=== PATIENT | male | born 1935 | race Caucasian/White ===

== ENCOUNTER 2017-05-11 09:10 | Emergency (ER) | payer MEDICARE ==
[~2017-05-11] VITALS: Ht 180.3 cm; Wt 116.8 kg
[2017-05-11 09:17] VITALS: BP 149/69; PULSE 71; RESP 16; O2SAT 96
--- NOTE | 2017-05-11 09:24 | ED.REPORT ---
HPI-General Illness Date of Service May 11, 2017 ED Provider: Linwood Khan DO The patient is an 81 year old male with history of atrial fibrillation, prostate cancer, and borderline diabetes, who was sent to the emergency department from urgent care for bradycardia. His heart rate went down to the 30' s while at urgent care. He did not have symptoms when his heart rate was this low. The patient went to urgent care this morning for a cough with yellow sputum that has been ongoing for the last week. His cough has worsened since onset. He has noticed some shortness of breath. He denies fever, chills, chest pain or vomiting. He has chronic lower extremity swelling. He got back from [place] 1 week ago. He takes aspirin daily but no other medications. Nursing Notes Stated Complaint: HEART RATE DECREASE Chief Complaint: Dysrhythmia/Cardiac Nursing Notes Reviewed: Yes Allergies: Coded Allergies: shellfish derived (Verified Allergy, Severe, Hives, 05/11/17) Scheduled Amoxicillin/Clav K 875-125 mg (Augmentin 875-125 mg) 1 Each Tablet 1 TABLET PO BID Azithromycin (Zithromax (Z-[place])) 250 Mg Tablet 250 MG PO DIRECTED Take two tablets by mouth on day 1, then take one tablet daily on days 2 through 5. General Time Seen by MD: 09:22 Chief Complaint Other (bradycardia) Hx Obtained From: Patient, Spouse Arrived By: Walk-in Sudden in Onset?: No Onset Occurred: 1 week ago Symptom Duration: Since onset Location: No: Chest Severity: Current: No pain currently Severity: Maximum: No pain Recent Healthcare: No recent hospitalization, Recent doctor visit Similar Sx Previous: No Past Medical History Past Medical History Borderline diabetic Prostate cancer Atrial fibrillation Past Surgical History TURP Gallbladder surgery Family History Noncontributory Smoking History Never Smoker Social History Alcohol Use: "Social" Other Social History: Good social support, , Local resident Ambulatory Status Independent Review of Systems Full Review of Systems Constitutional: Denies: Chills, Fever Respiratory: Reports: Prod cough, yellow, Shortness of breath Cardiovascular: Denies: Chest pain GI: Denies: Nausea, Vomiting Musculoskeletal: Reports: Extremity swelling (chronic) Complete sys rev & neg: except as marked. Physical Exam Vital Signs Vital Signs Date Time Temp Pulse Resp B/P Pulse Ox O2 Delivery O2 Flow Rate FiO2 05/11/17 12:50 70 23 133/46 95 Room Air 05/11/17 11:42 77 20 130/40 95 Room Air 05/11/17 09:17 36.4 71 16 149/69 96 Room Air Initial VS: Reviewed Head / Eyes: Atraumatic, Normocephalic, PERRL ENT: Mucous membranes moist, Conjunctiva normal, No scleral icterus Neck: Supple, Non-tender, Full range of motion Abdomen / GI: Soft, Non-tender, No guarding, No rebound, No distention Lymphatic: No lymphadenopathy Extremities: Vascular intact, Neuro intact, No tenderness Skin: Warm, Dry, No cyanosis Neurologic: Alert, Oriented, Nonfocal Psychiatric: Mood/affect normal, Behavior normal, Normal thought content General/Constitutional: Awake, Alert, Cooperative Respiratory / Chest: Breath sounds = bilat, No respiratory distress, No chest tenderness, No chest wall deformity Expiratory wheezing and rhonchi bilaterally, right greater than left. Cardiovascular: Heart rate NL, Regular rhythm, Heart sounds NL, No gallop, No murmurs, No rubs, Cap refill not delayed, Pulses = bilaterally, No gross BP differential Lower Ext Edema: Positive: Bilateral 2+ Interpretation & Diagnostics Lab Results Interpretation Result Diagram: 05/11/17 0845 05/11/17 0845 Test 05/11/17 08:45 05/11/17 11:55 05/11/17 12:15 White Blood Count 10.5th/mm3 (3.8-10.1) Red Blood Count 4.60mil/mm3 (4.40-5.80) Hemoglobin 12.1g/dL (13.8-17.2) Hematocrit 39.8% (41.0-50.0) Mean Corpuscular Volume 86.5fL (81-100) Mean Corpuscular Hemoglobin 26.3pg (27.0-35.0) Mean Corpuscular Hemoglobin Concent 30.4% (32.0-37.0) Red Cell Distribution Width 15.4% (12.3-15.4) Platelet Count 296bil/L (150-400) Neutrophils (%) (Auto) 76.9% (40-74) Lymphocytes (%) (Auto) 8.4% (14-46) Monocytes (%) (Auto) 13.4% (4-12) Eosinophils (%) (Auto) 0.9% (0-5) Basophils (%) (Auto) 0.2% (0-3) Sodium Level 138mEq/L (134-144) Potassium Level 4.3mEq/L (3.5-5.2) Chloride Level 99mEq/L (97-108) Carbon Dioxide Level 22mmol/L (18-29) Blood Urea Nitrogen 10mg/dL (8-27) Creatinine 0.75mg/dL (0.76-1.27) Estimat Glomerular Filtration Rate 106mL/min (>59) Glucose Level 242mg/dL (60-99) Calcium Level 9.1mg/dL (8.5-10.1) Magnesium Level 2.0mg/dL (1.6-2.6) Total Bilirubin 0.6mg/dL (0.0-1.2) Aspartate Amino Transf (AST/SGOT) 14U/L (0-50) Alanine Aminotransferase (ALT/SGPT) 14U/L (0-44) Alkaline Phosphatase 62U/L (25-160) Troponin T 0.010ug/L (0.0-0.011) Pro-B-Type Natriuretic Peptide 383.8pg/mL (0-486) Total Protein 7.6g/dL (6.4-8.4) Albumin 3.8g/dL (3.4-5.0) Lactic Acid Level 2.0mmol/L (0.4-2.0) ECG Interpretation ECG Interpretation: Sinus rhythm with first degree AV block Probably RBBB PVCs Time: 09:30 Interpreted by: ED physician X-Ray Chest Interpretation Chest Xray Interpretation: IMPRESSION: No acute cardiopulmonary findings. Dictated by: Shira Coronado M.D. on 05/11/2017 at 10:24 Interpretation / Wet Read by: Interpret - Radiologist Re-Eval/Medical Decision Med Decision/Clinical Course Patient's chief complaint was URI symptoms. In regard to this he has a normal white blood cell count, normal vital signs, his lactate was minimally out of the normal range and promptly came down to a normal range after IV fluids. He is not toxic appearing, he does not have obvious pneumonia on x-ray. However given his advanced age, comorbidities and symptoms he will be started on Augmentin and azithromycin. Regard to the brief asymptomatic episode of bradycardia, there was no telemetry documentation sent over of proven bradycardia while in the urgent care, the patient was asymptomatic of this, he denies presyncope, chest pain, worsening shortness of breath or any other particular symptoms. In talking to the patient and his he is resistant to starting new medications and preferred to be on as few medications as possible. I did offer him a hospitalization and observation for this episode of bradycardia however he declines this as he is from out of town and would like to go home and see his regular doctor. We did discuss close outpatient follow-up with his primary care and outside upholsterer for Holter monitoring and possibly pacemaker as needed. Return and follow-up precautions are given. Source of Hx: Old records, Family Time of Eval: 11:08 Re-Evaluation/Progress Note: Rechecked the patient. Discussed findings and option for admission. The patient declines. He is from out of town and is strongly opposed to being admitted and agrees to followup with his primary care provider. Will administer IVF, redraw lactic, and discharge if improved. Time of Eval: 12:32 Re-Evaluation/Progress Note: Rechecked the patient. Discussed repeat labs, diagnosis, and plan for discharge. All questions were addressed. Counseled Regarding: Diagnosis, Lab results, Need for follow-up, When/why to return to ED Discharge & Departure Primary Impression: Bronchitis Additional Impression: Bradycardia Disposition: Home Discharge Condition All VS Reviewed: Yes Condition: Stable Patient Instructions: Acute Bronchitis (ED), Bradycardia (ED) Additional Instructions: Thank you for entrusting us with your care today. We have offered you admission to the hospital but you would like to be discharged at this time. It is important that you followup with your primary doctor when you return home guarding the episode of low heart rate and also your respiratory symptoms. Continue taking your regularly prescribed medications. Additionally take the antibiotics as prescribed. Return to the emergency department for chest pain, shortness of breath, or any other new or concerning symptoms. Referrals: [facility] Scribe Attestation Portions of this note were transcribed by Malorie Larose. I, Dr. Khan personally performed the history, physical exam and medical decision-making; I reviewed and confirmed the accuracy of the information in the transcribed note. Signed by: Rahul Hou, 05/11/2017 at 1300. Linwood Khan DO May 11, 2017 09:23 Thuan,Malorie Valadez May 11, 2017 09:26
[2017-05-11 10:04] LABS: BASOPHILS % (AUTO) 0.2 % (0-3); EOSINOPHILS % (AUTO) 0.9 % (0-5); MONOCYTES % (AUTO) 13.4 % (4-12); Mean Corpuscular Hemoglobin 26.3 pg (27.0-35.0); Mean Corpuscular Volume 86.5 fL (81-100); NEUTROPHILS % (AUTO) 76.9 % (40-74); Platelet Count 296 bil/L (150-400)
--- NOTE | 2017-05-11 10:26 | DRSVH ---
PROCEDURE: X-RAY CHEST, TWO VIEWS ([id number]) INDICATIONS: cough, sputum TECHNIQUE: 2 views of the chest were acquired. COMPARISON: None. FINDINGS: Surgical changes and devices: None. Lungs and pleura: No pleural effusions or pneumothorax. Lungs are clear. Mediastinum: Mediastinal contours are normal. Heart size is normal. Bones and chest wall: No suspicious bony abnormalities. Soft tissues appear unremarkable. IMPRESSION: No acute cardiopulmonary findings. Dictated by: Shira Coronado M.D. on 05/11/2017 at 10:24 Approved by: Shira Coronado M.D. on 05/11/2017 at 10:24
[2017-05-11 10:38] LABS: TROPONIN T 0.01 ug/L (0.0-0.011)
[2017-05-11] MEDS ORDERED: 0.9% Sodium Chloride 500 ML IV ONE (10:50)
[2017-05-11] MEDS ORDERED: Amoxicillin-Clav 875-125 mg Tablet PO ONE (11:25)
[2017-05-11 11:42] VITALS: BP 130/40; PULSE 77; RESP 20; O2SAT 95
[2017-05-11] MEDS ORDERED: AZIT250T4 PO (12:40)
[2017-05-11] MEDS ORDERED: AMOX-366 PO (12:40)
[2017-05-11 12:50] VITALS: BP 133/46; PULSE 70; RESP 23; O2SAT 95
[2017-05-11 13:04] LABS: APPEARANCE,URINE CLEAR (CLEAR,HAZY); COLOR,URINE STRAW (YELLOW)
[2017-05-11 13:05] LABS: OCCULT BLOOD,URINE TRACE (NEGATIVE); PH,URINE 5.5 (5.0-8.0); UROBILINOGEN,URINE NORMAL (NORMAL)
== END 2017-05-11 12:51 | disposition home or self-care (01) ==
LOC: SED 09:10
DX: J40 Bronchitis, not specified as acute or chronic (principal); R00.1 Bradycardia, unspecified; I48.91 Unspecified atrial fibrillation; R73.03 Prediabetes; Z85.46 Personal history of malignant neoplasm of prostate; Z91.013 Allergy to seafood
CPT/HCPCS: 36415; 71020; 80053; 81000; 83605; 83735; 83880; 84484; 85025; 87040; 93005; 96360; 99285; J7040